=== PATIENT | female | born 1980 | race Two or more races ===

== ENCOUNTER 2024-04-12 10:55 | Inpatient (IN) | payer OTHER ==
[~2024-04-12] VITALS: Ht 162.6 cm; Wt 68.0 kg
[2024-04-12] MEDS ORDERED: PIPERACILLIN/TAZOBACTAM SODIUM 3.375 GM VIAL IV ONE ×3 (11:55→20:04)
[2024-04-12] MEDS ORDERED: 0.9 % SODIUM CHLORIDE 1,000 ML IV SCH ×2 (12:00→19:45)
[2024-04-12 12:12] LABS: HEMATOCRIT 41.6 % (36.0-45.00); HEMOGLOBIN 14.6 g/dL (12.0-15.00); MEAN CELL VOLUME 91.6 fL (80.00-100.00); MEAN CORPUSCULAR HEMOGLOBIN 32.1 pg (27.00-32.0); PLATELET COUNT 282 K/uL (150-450); RED BLOOD COUNT 4.54 M/uL (4.00-6.00); RED CELL DISTRIBUTION WIDTH 12.4 % (11.5-14.5)
[2024-04-12 12:52] LABS: CREATININE SERUM 0.67 mg/dL (0.55-1.02); GFR 95.61; POTASSIUM 3.01 mEq/L (3.5-5.1)
[2024-04-12 12:54] LABS: INR 1.09; PARTIAL THROMBOPLASTIN TIME 28.5 SECONDS (22.0-34.0); PROTHROMBIN TIME 11.8 SECONDS (9.0-11.5)
[2024-04-12 13:11] LABS: PH,URINE 5.5 (5.0-8.0); URINE APPEARANCE Clear; URINE BILIRRUBIN Negative (NEGATIVE); URINE BLOOD Small; URINE COLOR Yellow; URINE GLUCOSE Negative (NEGATIVE); URINE LEUKOCYTE Negative; URINE NITRATE Negative; URINE PROTEIN Negative (NEGATIVE); URINE UROBILINOGEN 0.2 E.U./dl
[2024-04-12 13:13] LABS: URINE BACTERIA 110.1 uL (0.0-1933); URINE EPITHELIAL CELLS 10.5 uL (0.0-38.8); URINE RBC 3.5 uL (0.0-20.8); URINE WBC 8.2 uL (0.0-23.2)
[2024-04-12 13:15] LABS: URINE CAST 0.14 uL (0.0-1.40); URINE KETONE >=160 (NEGATIVE)
[2024-04-12] MEDS ORDERED: POTASSIUM CHLORIDE 20MEQ/100ML H2O PB IV ONE ×2 (19:15→19:35)
[2024-04-12] MEDS ORDERED: POTASSIUM BICARBONATE/CIT AC 25 MEQ TABLET.EFF PO ONE (19:15)
[2024-04-12] MEDS ORDERED: ACETAMINOPHEN 500 MG GEL..CAP PO PRN (19:45)
[2024-04-12] MEDS ORDERED: MORPHINE SULFATE 2 MG/ML SYRINGE IV ONE (19:45)
[2024-04-12] MEDS ORDERED: KETOROLAC TROMETHAMINE 15 MG VIAL IU ONE (19:45)
[2024-04-12] MEDS ORDERED: KETOROLAC TROMETHAMINE 30 MG VIAL ONE (20:03)
[2024-04-12 20:32] LABS: INR 1.05; PARTIAL THROMBOPLASTIN TIME 25.1 SECONDS (22.0-34.0); PROTHROMBIN TIME 11.4 SECONDS (9.0-11.5)
[2024-04-12 20:37] LABS: ALBUMIN 4.1 gm/dL (3.4-5.0); BILIRUBIN TOTAL 0.71 mg/dL (0.3-1.2); CREATININE SERUM 0.67 mg/dL (0.55-1.02); GFR 95.61; GLOBULINA 4.3 G/DL (2.4-3.5); POTASSIUM 3.24 mEq/L (3.5-5.1); TOTAL PROTEIN 8.4 gm/dL (6.4-8.2)
[2024-04-13] MEDS ORDERED: PIPERACILLIN/TAZOBACTAM SODIUM 3.375 GM in 0.9 % SODIUM CHLORIDE 100 ML IV SCH
[2024-04-13 01:55] VITALS: BP 96/54
[2024-04-13] MEDS ORDERED: MORPHINE SULFATE 2 MG/ML CARTRIDGE IV PRN (05:00)
[2024-04-13] MEDS ORDERED: FAMOTIDINE/PF 20 MG in 0.9 % SODIUM CHLORIDE 8 ML IV PUSH SCH (09:00)
[2024-04-13 09:30] VITALS: BP 123/68
[2024-04-13 18:09] VITALS: BP 123/69; O2SAT 100
[2024-04-13] MEDS ORDERED: DIPHENHYDRAMINE HCL 50 MG/ML VIAL 1ML IV ONE (21:00)
[2024-04-14 02:42] VITALS: BP 127/75
[2024-04-14 08:28] VITALS: BP 132/73
[2024-04-14] MEDS ORDERED: ONDANSETRON HCL 2 MG/ML VIAL IV PRN (15:30)
[2024-04-14] MEDS ORDERED: 0.9 % SODIUM CHLORIDE 1,000 ML IV SCH (15:30)
[2024-04-14] MEDS ORDERED: KETOROLAC TROMETHAMINE 30 MG VIAL IV PRN (15:30)
[2024-04-14] MEDS ORDERED: SUGAMMADEX SODIUM 200 MG/2 ML VIAL IV ONE (17:45)
[2024-04-14] MEDS ORDERED: ONDANSETRON HCL 2 MG/ML VIAL ONE (17:48)
[2024-04-14 18:50] VITALS: BP 142/85; O2SAT 100
[2024-04-14] MEDS ORDERED: TERCONAZOLE 20 GM TUBE VAG SCH (21:00)
[2024-04-15 00:55] VITALS: BP 127/68; O2SAT 100
[2024-04-15 08:49] LABS: HEMATOCRIT 42.8 % (36.0-45.00); HEMOGLOBIN 14.5 g/dL (12.0-15.00); MEAN CELL VOLUME 93.3 fL (80.00-100.00); MEAN CORPUSCULAR HEMOGLOBIN 31.7 pg (27.00-32.0); MEAN CORPUSCULAR HGB CONC 33.9 g/dl (32.0-36.0); PLATELET COUNT 298 K/uL (150-450); RED BLOOD COUNT 4.59 M/uL (4.00-6.00); RED CELL DISTRIBUTION WIDTH 12.6 % (11.5-14.5)
== END 2024-04-15 13:09 | disposition home or self-care (01) | DRG 419 ==
LOC: ER 10:57 → MEDJ 21:20
PROVIDERS: Emergency Medicine; General Practice; Surgery; ADMIT Internal Medicine; ATTEND Internal Medicine
PROC: BW40ZZZ Ultrasonography of Abdomen (ICD-10-PCS; 2024-04-12)
PROC: 0WQF4ZZ Repair Abdominal Wall, Percutaneous Endoscopic Approach (ICD-10-PCS; 2024-04-14)
PROC: 0FT44ZZ Resection of Gallbladder, Percutaneous Endoscopic Approach (ICD-10-PCS; principal; 2024-04-14 17:30)
DX: K80.00 Calculus of gallbladder with acute cholecystitis without obstruction (principal); K43.9 Ventral hernia without obstruction or gangrene